=== PATIENT | female | born 1975 | race Caucasian/White ===

== ENCOUNTER 2018-07-25 23:50 | Emergency (ER) | payer SELFPAY, OTHER ==
[2018-07-26] MEDS: DIPHENHYDRAMINE 50 MG INJ IV (00:23)
[2018-07-26] MEDS: FAMOTIDINE 20 MG INJ IV (00:24)
[2018-07-26] MEDS: METHYLPREDNISOLONE 125 MG INJ IV (00:26)
[2018-07-26] MEDS: EPINEPHrine 1 MG INJ IM (00:26)
[2018-07-26] MEDS: IPRATROPIUM (NEB) 0.5 MG/2.5 ML AMP INH (00:47)
[2018-07-26] MEDS: ALBUTEROL 0.083% (NEB) 2.5 MG/3 ML AMP INH (00:47)
== END 2018-07-26 02:43 | disposition home or self-care (01) ==
LOC: E/R 23:50
DX: R60.0 Localized edema (principal); E03.9 Hypothyroidism, unspecified
CPT/HCPCS: 94664; 96372; 96374; 96375; 99284-25